=== PATIENT | female | born 1940 | race Caucasian/White ===

== ENCOUNTER 2017-01-25 11:42 | Inpatient (IN) | payer OTHER ==
[~2017-01-25] VITALS: Ht 165.1 cm; Wt 73.5 kg
[2017-01-25 12:02] VITALS: BP 191/94
--- NOTE | 2017-01-25 13:31 | NUR ---
PATIENT PRESENTS TO ED WITH C/O N/V/D X 1 MONTH---LOWER ABDOMINAL PAIN BURNING SENSATION, ASSOCIATES PAIN AND N/V/D AFTER ANY PO INTAKE--- ARRIVED FROM [place] 2 MONTHS AGO--HERE VISITING SEEN IN OUR 01/14/2017- 01/21/2017 HX---HTN, OSTEOPOROSIS, FIBROMYALGIA, RX---METOPROLOL, LOSARTAN, TREGRETOL, TRAMADOL, CLONAZEPAM . DENIES N/V/D; SKIN IS PINK/WARM/DRY; AAOX4 WITH EVEN AND STEADY GAIT; LUNGS CLEAR BL; HR EVEN AND REGULAR; PT DENIES ANY FEVER, CP, SOB, OR COUGH AT THIS TIME; PATIENT STATES PAIN OF 9/10 AT THIS TIME; VSS; PATIENT POSITIONED FOR COMFORT; HOB ELEVATED; BEDRAILS UP X2; BED DOWN. ER MD MADE AWARE OF PT STATUS.
[2017-01-25] MEDS ORDERED: PROTONIX40 MG PO (14:31)
[2017-01-25] MEDS ORDERED: TOPROL XL100 MG PO (14:31)
[2017-01-25] MEDS ORDERED: SUCRALFATE1 G1 PO (14:31)
[2017-01-25] MEDS ORDERED: LYRICA75 MG PO (14:31)
[2017-01-25] MEDS ORDERED: ISOSORBIDE DINI10 M1 PO (14:31)
[2017-01-25] MEDS ORDERED: LOSARTAN POTASS50 MG PO (14:31)
--- NOTE | 2017-01-25 14:32 | NUR ---
DR ROMERO EVALUATING AAO PT WITH DAUGHTER AT BEDSIDE
[2017-01-25] MEDS ORDERED: PIPERACILLIN/TAZOBACTAM 3.375 GM in DEXTROSE 5% 50 ML IV ONE (14:40)
[2017-01-25] MEDS ORDERED: PIPERACILLIN/TAZOBACTAM 3.375 GM VIAL IV ONE (14:49)
--- NOTE | 2017-01-25 15:02 | NUR ---
Patient will be admitted to care of DR MARTIN. Admited to MS. Will go to room 121B. Belongings list completed. Report to PINEDA OROURKE.
--- NOTE | 2017-01-25 15:55 | NUR ---
PATIENT ADMITTED TO THE UNIT FROM ER. PATIENT AWAKE,ALERT AND ORIENTED. PATIENT PRIMARILY SPEAKS MACANESE. PATIENT NO S/S OF DISTRESS NOTED. PATIENT ON ROOM AIR. PATIENT REPORTS OF 8/10 ABD PAIN. WILL NOTIFY THE MD FOR ORDERS. NO ACTIVE VOMITING OR DIARRHEA AT THIS MOMENT. BED LOWERED WITH CALL LIGHT WITHIN REACH. WILL CONTINUE TO MONITOR
[2017-01-25 16:19] VITALS: BP 171/90
[2017-01-25] MEDS ORDERED: cloNIDine 0.1 MG TAB PO PRN (16:55)
[2017-01-25] MEDS ORDERED: DEXT 5% / NACL 0.45% 1,000 ML IV SCH (16:55)
--- NOTE | 2017-01-25 19:30 | NUR ---
RECEIVED REPORT FROM AM NURSE. PT FAMILY AT BEDSIDE. PT RESTING IN BED, AOX4, ABLE TO VERBALIZE NEEDS. PT DENIES CHEST PAIN, SOB OR S/S OF ACUTE DISTRESS. PT C/O SLIGHT ABD PAIN, DENIES PAIN MED AT THIS TIME. PT C/O SLIGHT NAUSEA, DENIES NAUSEA MEDICATION AT THIS TIME. IV ACCESS ASYMPTOMATIC, PATENT AND INTACT. IVF INFUSING WELL. DISCUSSED AND REVIEWED PLAN OF CARE WITH PT. PT VERBALIZED UNDERSTANDING. ALL NEEDS MET. SAFETY MEASURES ENSURED. CALL LIGHT WITHIN REACH. WILL CONTINUE TO MONITOR.
--- NOTE | 2017-01-25 19:31 | NUR ---
PATIENT REPORT GIVEN AT BEDSIDE. PATIENT ENDORSED IN STABLE CONDITION
[2017-01-25 20:00] VITALS: BP 120/67
[2017-01-25] MEDS ORDERED: HYDROmorphone 1 MG/ML AMP IVP PRN (20:15)
[2017-01-25] MEDS ORDERED: MORPHINE SULFATE 2 MG/ML SYR IVP PRN (20:50)
[2017-01-25] MEDS ORDERED: LORazepam 2 MG/ML VIAL IVP PRN (20:50)
[2017-01-25] MEDS: METOPROLOL SUCCINATE 50 MG TABER PO SCH (21:00)
[2017-01-25] MEDS: DEXT 5% /NACL 0.9% 1,000 ML IV SCH (21:55)
[2017-01-25] MEDS: ACETAMINOPHEN 325 MG TAB PO PRN (21:56)
[2017-01-25] MEDS: PREGABALIN 25 MG CAP PO SCH (21:56)
[2017-01-25] MEDS: LOSARTAN 50 MG TAB PO SCH (21:56)
[2017-01-25] MEDS: clonazePAM 0.5 MG TAB PO SCH (21:58)
--- NOTE | 2017-01-25 21:58 | NUR ---
HELD METOPROLOL DUE TO LOW HR. ADMINISTERED REMAINING DUE MEDS WITH EDUCATION. ADMINISTERED TYLENOL PO PRN FOR FEVER. COOLING MEASURES ENSURED, WILL CONTINUE TO MONITOR. ALL NEEDS MET. SAFETY MEASURES ENSURED. CALL LIGHT WITHIN REACH. WILL CONTINUE TO MONITOR.
[2017-01-26] VITALS: BP 100/64
--- NOTE | 2017-01-26 00:10 | NUR ---
TEMP 97.7 AT THIS TIME. NO S/S OF DISTRESS. PT DENIES PAIN MED OR NAUSEA MED AT THIS TIME, WILL CONTINUE TO MONITOR. ALL NEEDS MET. SAFETY MEASURES ENSURED. CALL LIGHT WITHIN REACH. WILL CONTINUE TO MONITOR.
--- NOTE | 2017-01-26 04:01 | NUR ---
PT SLEEPING COMFORTABLY, NO S/S OF ACUTE DISTRESS. ALL NEEDS MET. IVF INFUSING WELL. SAFETY MEASURES ENSURED. CALL LIGHT WITHIN REACH. WILL CONTINUE TO MONITOR.
[2017-01-26] MEDS: DEXT 5% /NACL 0.9% 1,000 ML IV SCH ×3 (06:50→22:03)
--- NOTE | 2017-01-26 07:15 | NUR ---
ENDORSED PLAN OF CARE TO AM NURSE. CONDITION STABLE.
--- NOTE | 2017-01-26 07:16 | NUR ---
RECEIVED REPORT FROM SALESPERSON USED CARS NURSE. PATIENT IS SLEEPING. NO ACUTE DISTRESS NOTED. IN STABLE CONDITION. RESPIRATIONS EVEN, UNLABORED. LEFT HAND IV INTACT, PATENT AND RUNNING. PLAN OF CARE REVIEWED. SAFETY MEASURES IN PLACE, CALL LIGHT WITHIN REACH, SIDE RAILS UP X2, SEIZURE PRECAUTIONS IN PLACE WITH BED RAIL PADDING, BED WHEELS LOCKED. WILL CONTINUE TO MONITOR.
[2017-01-26 08:00] VITALS: BP 107/59
[2017-01-26] MEDS: PREGABALIN 25 MG CAP PO SCH ×2 (08:50→20:26)
[2017-01-26] MEDS: ISOSORBIDE DINITRATE 10 MG TAB PO SCH (08:51)
[2017-01-26] MEDS: SUCRALFATE 1 GM TAB PO SCH (08:51)
[2017-01-26] MEDS: PANTOPRAZOLE 40 MG TABEC PO SCH (08:52)
[2017-01-26] MEDS: LOSARTAN 50 MG TAB PO SCH ×2 (09:00→20:47)
[2017-01-26] MEDS: METOPROLOL SUCCINATE 50 MG TABER PO SCH ×2 (09:00→20:29)
[2017-01-26] MEDS ORDERED: FAMOTIDINE 20 MG TAB PO SCH (09:00)
--- NOTE | 2017-01-26 09:15 | NUR ---
PATIENT SITTING IN BED COMFORTABLY. NO DISTRESS NOTED. RESPIRATIONS EVEN, UNLABORED. COMPLAINTS OF ABD PAIN THAT IS WITHIN TOLERABLE LIMITS AT THIS TIME. AAOX4, CONTINUES TO BE ON FULL-LIQUID DIET. NO COMPLAINTS OF NAUSEA AT THIS TIME. AMBULATORY, LEFT AC IV PATENT WITH NO COMPLICATIONS NOTED. ABDOMEN SOFT, NON-DISTENDED, LBM YESTERDAY. SAFETY MEASURES IN PLACE, SEIZURE PRECAUTIONS IN PLACE, BED RAILING PADDED, CALL LIGHT WITHIN REACH. WILL CONTINUE TO MONITOR.
--- NOTE | 2017-01-26 10:43 | NUR ---
PATIENT HAS BEEN SCREENED AND CATEGORIZED HIGH NUTRITION RISK. PATIENT WILL BE SEEN WITHIN 1-2 DAYS OF ADMISSION. 01/26/17 - 01/27/17 WILLEM HOLT MBA, RD
[2017-01-26] MEDS ORDERED: POTASSIUM CHLORIDE 10 MEQ TABER PO SCH (11:30)
[2017-01-26] MEDS: LEVOFLOXACIN 500 MG/D5W PREMIX 100 ML IV SCH ×2 (12:00→13:21)
[2017-01-26] MEDS: ONDANSETRON 4 MG/2 ML VIAL IVP PRN ×2 (13:34→20:29)
--- NOTE | 2017-01-26 13:42 | NUR ---
C/O GENERALIZED ABD PAIN AND NAUSEA, PT REPORTS DIARRHEA ONLY 1 THIS AM, ABD SOFT, NON DISTENDED, OLESYA SMALL AMT OF FULL LIQ DIET FOR LUNCH, MEDICATED WITH ZOFRANA ND MORPHINE GIVEN PERPRN ORDER, FAMILY AT BEDSIDE, WILL CONTINUE TO MONTIOR.
--- NOTE | 2017-01-26 15:45 | NUR ---
01/26/17 RD INITIAL ASSESSMENT COMPLETED. PLEASE REFER TO NUTRITION ASSESSMENT UNDER CARE ACTIVITY FOR ESTIMATED NUTRITIONAL NEEDS. RD RECOMMENDATIONS: 1- RECOMMEND CONTINUE FULL LIQUID DIET. 2- RECOMMEND ADVANCE DIET, TOLERATED AND WHEN MEDICALLY CLERAED, TO 2G NA DIET (PT HX HTN) 3- ENCOURAGE AND MONITOR PO INTAKES. 4- F/U 3-5 DAYS; MODERATE RISK. WILLEM HOLT MBA, RD
--- NOTE | 2017-01-26 15:47 | NUR ---
PATIENT SITTING IN BED WITH FAMILY MEMBERS AT BEDSIDE. NO DISTRESS NOTED. COMPLAINTS ON ABD PAIN THAT IS WITHIN TOLERABLE LIMITS, REFUSES PAIN MEDS AT THIS TIME. CONTINUES TO HAVE NAUSEA THAT HAS DECREASED AFTER GIVEN ZOFRAN. NO BM YET TODAY. IV ON LEFT AC PATENT AND INFUSING. SAFETY MEASURES IN PLACE, CALL LIGHT WITHIN REACH. WILL CONTINUE TO MONITOR.
[2017-01-26 16:00] VITALS: BP 117/74
--- NOTE | 2017-01-26 17:55 | NUR ---
PT UP TO BATHROOM AMBULATES WITH STEADY GAIT, NO BM/DIARRHEA AT THIS TIME, DENIES NAUSEA OR VOMITING NOW, OLESYA SMALL AMOUNT OF DINNER. WILL CONTINUE TO MONTIOR.
--- NOTE | 2017-01-26 18:15 | NUR ---
PATIENT LYING IN BED. NO DISTRESS NOTED. COMPLAINS OF A HEADACHE. TYLENOL GIVEN. SAFETY MEASURES IN PLACE, CALL LIGHT WITHIN REACH. WILL CONTINUE TO MONITOR.
[2017-01-26] MEDS: ACETAMINOPHEN 325 MG TAB PO PRN (18:22)
--- NOTE | 2017-01-26 19:30 | NUR ---
REPORT GIVEN TO ARCH SUPPORT TECHNICIAN NURSE, PT IN STABLE CONDITION.
--- NOTE | 2017-01-26 19:31 | NUR ---
RECEIVED PT FROM DAY NURSE, PT IN STABLE CONDITION. PT IS AAOX4, PT SKIN IS INTACT, PT IS ON RA, PADS IN PLACE FOR SEIZURE PRECAUTIONS, PT HAS IV TO L AC 20G INFUSING WELL, RESPIRATIONS ARE EVEN AND UNLABORED. BOWEL SOUNDS PRESENT, INITIAL ASSESSMENT COMPLETED. PLAN OF CARE DISCUSSED WITH PT. PT VERBALIZED UNDERSTANDING. ALL SAFETY PRECAUTIONS MET, CALL LIGHT WITHIN REACH, WILL CONTINUE TO MONITOR.
[2017-01-26] MEDS: clonazePAM 0.5 MG TAB PO SCH (20:26)
[2017-01-26] MEDS: FAMOTIDINE 20 MG TAB PO SCH (20:26)
[2017-01-27] VITALS: BP 101/65
--- NOTE | 2017-01-27 00:15 | NUR ---
PT RESTING COMFORTABLY IN BED, NO S/S OF DISTRESS NOTED. CALL LIGHT WITHIN REACH, ALL SAFETY PRECAUTIONS MET, WILL CONTINUE TO MONITOR.
[2017-01-27] MEDS: DEXT 5% /NACL 0.9% 1,000 ML IV SCH ×2 (06:40→22:50)
--- NOTE | 2017-01-27 07:24 | NUR ---
REPORT GIVEN TO DAY NURSE FOR CONTINUITY OF CARE, PT IN STABLE CONDITION, NO S/S OF DISTRESS NOTED.
--- NOTE | 2017-01-27 07:25 | NUR ---
REPORT RECEIVED FROM POLICE CADET NURSE, PT AWAKE ALERT, RESP EVEN UNLABORED ON ROOM AIR, SKIN WARM DRY COLOR WNL, PT DENIES N/V, BUT REPORTS LOW ABD PAIN 6/10, ABD SOFT, NON DISTENDED, WILL MEDICARE PER ORDER FOR PAIN, PLAN OF CARE DISCUSSED, PT VERBALIZED FULL UNDERSTANDING, CALL MOURA WITHIN REACH SIDE RAIL UPX2, BED LOCKED IN LOW POSITION, WILL CONTINUE TO MONITOR.
[2017-01-27 08:00] VITALS: BP 125/75
[2017-01-27] MEDS ORDERED: FAMOTIDINE 20 MG TAB PO SCH (09:00)
[2017-01-27] MEDS: METOPROLOL SUCCINATE 50 MG TABER PO SCH ×2 (09:00→20:19)
[2017-01-27] MEDS: PANTOPRAZOLE 40 MG TABEC PO SCH (09:01)
[2017-01-27] MEDS: HYDROcodone/APAP 5/325 MG 1 TAB TAB PO PRN (09:01)
[2017-01-27] MEDS: SUCRALFATE 1 GM TAB PO SCH (09:01)
[2017-01-27] MEDS: PREGABALIN 25 MG CAP PO SCH ×2 (09:01→20:20)
[2017-01-27] MEDS: FAMOTIDINE 20 MG TAB PO SCH ×2 (09:02→20:19)
[2017-01-27] MEDS: ISOSORBIDE DINITRATE 10 MG TAB PO SCH (09:05)
[2017-01-27] MEDS: LOSARTAN 50 MG TAB PO SCH ×2 (09:05→20:20)
--- NOTE | 2017-01-27 09:10 | NUR ---
PATIENT LYING IN BED. NO DISTRESS NOTED. RESPIRATIONS EVEN, UNLABORED, ROOM AIR. AAOX4, ABDOMEN SOFT, NON-DISTENDED. COMPLAINS OF ABD PAIN, WILL MEDICATE PER ORDERS. AMBULATORY, SKIN INTACT. IV PATENT AND INFUSING. MEDICATIONS DUE GIVEN. BRADYCARDIA, NO COMPLAINTS OF DIZZINESS OR LIGHTHEADEDNESS. SAFETY MEASURES IN PLACE, CALL LIGHT WITHIN REACH, SEIZURE PRECAUTIONS IN PLACE, BED RAILS PADDED. WILL CONTINUE TO MONITOR.
[2017-01-27] MEDS: LEVOFLOXACIN 500 MG/D5W PREMIX 100 ML IV SCH (11:41)
--- NOTE | 2017-01-27 11:47 | NUR ---
PATIENT LYING IN BED COMFORTABLY WITH FRIEND AT BEDSIDE. NO DISTRESS NOTED. RESPIRATIONS EVEN, UNLABORED. MEDICATIONS DUE GIVEN. NO COMPLAINTS OF PAIN, NOR ANY DISCOMFORT AT THIS TIME. SAFETY MEASURES IN PLACE, CALL LIGHT WITHIN REACH, SEIZURE PRECAUTIONS IN PLACE. WILL CONTINUE TO MONITOR.
--- NOTE | 2017-01-27 14:30 | NUR ---
PATIENT IS SLEEPING. NO DISTRESS NOTED. IV PATENT AND INFUSING. SAFETY MEASURES IN PLACE, CALL LIGHT WITHIN REACH, SEIZURE PRECAUTIONS IN PLACE, BED RAILS PADDED. WILL CONTINUE TO MONITOR.
[2017-01-27 16:00] VITALS: BP 117/62
--- NOTE | 2017-01-27 16:30 | NUR ---
PATIENT SITTING WITH FAMILY MEMBER AT BEDSIDE. NO DISTRESS NOTED. RESPIRATIONS EVEN, UNLABORED. ABD PAIN WITHIN TOLERABLE, REFUSED PAIN MEDICATION AT THIS TIME. DENIES ANY NAUSEA. ABDOMEN SOFT, NON-DISTENDED. SAFETY MEASURES IN PLACE, CALL LIGHT WITHIN REACH, SEIZURE PRECAUTIONS ON PLACE, BED RAILS PADDED. WILL CONTINUE TO MONITOR.
--- NOTE | 2017-01-27 17:45 | NUR ---
PT UP AMBULATING WELL TO BATHROOM WITH STEADY GAIT, PT REPORTS TAKING KEPPRA 500MG EVERY NIGHT IN ADDITION TO KLONOPIN FOR SEIZURES, DR MARTIN PAGED AND CALLED BACK, DR Chet MARTIN NOTIFIED OF PT TAKING KEPPRA DAILY, VERBAL ORDER RECEIVED.
--- NOTE | 2017-01-27 19:18 | NUR ---
REPORT GIVEN TO FIELD SALES REPRESENTATIVE NURSE, PT IN STABLE CONDITION.
--- NOTE | 2017-01-27 19:19 | NUR ---
RECEIVED REPORT FROM DAY NURSE, PT IS AAOX4, PT IS ON RA, NO S/S OF DISTRESS NOTED. RESPIRATIONS ARE EVEN AND UNLABORED. SKIN IS INTACT, BOWEL SOUNDS ARE PRESENT, IV TO L AC 20 G INFUSING WELL, PATENT AND INTACT. PT IS ON RA, INITIAL ASSESSMENT COMPLETED. PLAN OF CARE DISCUSSED WITH PT AT BEDSIDE, ALL SAFETY PRECAUTIONS MET, CALL LIGHT WITHIN REACH, WILL CONTINUE TO MONITOR.
[2017-01-27] MEDS: clonazePAM 0.5 MG TAB PO SCH (20:18)
[2017-01-27] MEDS: levETIRAcetam 500 MG TAB PO SCH (20:19)
--- NOTE | 2017-01-27 22:30 | NUR ---
PT RESTING COMFORTABLY IN BED, NO S/S OF DISTRESS NOTED. ALL SAFETY PRECAUTIONS MET.
[2017-01-28] VITALS: BP 148/76
--- NOTE | 2017-01-28 00:10 | NUR ---
PT RESTING COMFORTABLY IN BED, WILL CONTINUE TO MONITOR, CALL LIGHT WITHIN REACH
[2017-01-28] MEDS: DEXT 5% /NACL 0.9% 1,000 ML IV SCH ×2 (04:06→16:00)
--- NOTE | 2017-01-28 06:00 | NUR ---
PTS IV INFILTRATED, NEW IV STARTED BY ALISON CHARGE NURSE IN R HAND 24 G
--- NOTE | 2017-01-28 07:33 | NUR ---
GAVE REPORT TO DAY NURSE AT BEDSIDE FOR CONTINUITY OF CARE, PT IN STABLE CONDITION. NO S/S OF DISTRESS NOTED.
--- NOTE | 2017-01-28 07:34 | NUR ---
RECEIVED REPORT FROM HEALTH ASSOCIATE NURSE AT BEDSIDE FOR CONTINUITY OF CARE. PT IS AWAKE AND ORIENTED. INTRODUCED SELF AND UPDATED BOARD. PT IS AAOX4, AMBULATES INDEPENDENTLY. IV IS ON RIGHT HAND 24G WITH D5NS INFUSING AT 100ML/HR. SKIN IS WARM AND DRY. VS: WNL. PT DENIES ABDOMINAL PAIN. NO OTHER COMPLAINTS AT THIS TIME. WILL CONTINUE TO MONITOR.
[2017-01-28 08:00] VITALS: BP 134/74
[2017-01-28] MEDS: LOSARTAN 50 MG TAB PO SCH ×2 (08:37→20:57)
[2017-01-28] MEDS: ISOSORBIDE DINITRATE 10 MG TAB PO SCH (08:37)
[2017-01-28] MEDS: SUCRALFATE 1 GM TAB PO SCH (08:37)
[2017-01-28] MEDS: PANTOPRAZOLE 40 MG TABEC PO SCH (08:38)
[2017-01-28] MEDS: METOPROLOL SUCCINATE 50 MG TABER PO SCH ×2 (08:38→20:57)
[2017-01-28] MEDS: PREGABALIN 25 MG CAP PO SCH ×2 (08:38→20:53)
[2017-01-28] MEDS: FAMOTIDINE 20 MG TAB PO SCH ×2 (08:38→20:54)
--- NOTE | 2017-01-28 10:50 | NUR ---
PT WENT TO TAKE A SHOWER ASSISTED BY TESTING COORDINATOR. AMBULATED DOWN THE LINARES TO SHOWER ROOM WITH STEADY GAIT. NO WEAKNESS NOTED.
[2017-01-28] MEDS: LEVOFLOXACIN 500 MG/D5W PREMIX 100 ML IV SCH (11:34)
[2017-01-28] MEDS: HYDROcodone/APAP 5/325 MG 1 TAB TAB PO PRN (15:56)
--- NOTE | 2017-01-28 15:56 | NUR ---
PT STATED PAIN ON ABDOMEN 09/05. ADMINISTERED NORCO FOR PAIN. PT TOLERATED WELL. PT REQUESTING TO SPEAK TO AUTOMOTIVE PRODUCTION WORKER. CALLED CURLY CRUZ. AND DISCUSSED PT'S CONCERN. PT INSTRUCTED TO CALL HER OWN PRECISION LENS TECHNICIAN. PT VERBALIZED UNDERSTANDING.
[2017-01-28 16:00] VITALS: BP 142/75
--- NOTE | 2017-01-28 18:00 | NUR ---
CHECKED ON PT IN ROOM. VISITORS AT BEDSIDE. PT HAS NO COMPLAINTS AT THIS TIME. WILL CONTINUE TO MONITOR.
--- NOTE | 2017-01-28 19:20 | NUR ---
ENDORSED PT TO INTELLIGENCE ENGINEER NURSE AT BEDSIDE FOR CONTINUITY OF CARE. PT IN STABLE CONDITION. VISITORS AT BEDSIDE.
--- NOTE | 2017-01-28 19:30 | NUR ---
RECEIVED REPORT AT PT BEDSIDE FROM DAY SHIFT RN. PT IS AAOX4, ON ROOM AIR, FIL[place] SPEAKING, RESPIRATIONS EVEN AND UNLABORED. 24G IV TO RIGHT HAND INFUSING D5NS@100ML/HR, SKIN INTACT. BOWEL SOUNDS PRESENT. VITAL SIGNS WNL. PLAN OF CARE DISCUSSED WITH PT, PT VERBALIZED UNDERSTANDING. PT IN STABLE CONDITION, NO SIGNS OF DISTRESS NOTED. BED IN LOW POSITION, CALL LIGHT WITHIN REACH. WILL CONTINUE TO MONITOR.
[2017-01-28] MEDS: levETIRAcetam 500 MG TAB PO SCH (20:54)
[2017-01-28] MEDS: clonazePAM 0.5 MG TAB PO SCH (20:56)
--- NOTE | 2017-01-28 21:00 | NUR ---
DR MARTIN CAME TO SEE PT. SCHEDULED MEDICATIONS ADMINISTERED EXCEPT FOR BLOOD PRESSURE MEDICATIONS BECAUSE BP WAS 99/58 AND HEART RATE WAS 53 AT 21:00. PT TOLERATED WELL. PT IN STABLE CONDITION, NO SIGNS OF DISTRESS NOTED. BED IN LOW POSITION, CALL LIGHT WITHIN REACH. WILL CONTINUE TO MONITOR.
--- NOTE | 2017-01-28 23:15 | NUR ---
PER PT REQUEST, CALLED HER FRIEND HITESH TO TELL HER ABOUT POSSIBLE D/C TOMORROW. HITESH DIDN'T ANSWER, TOLD PATIENT WE COULD TRY AGAIN IN THE MORNING BECAUSE ITS POSSIBLE THAT SHE'S ASLEEP, PT AGREED. PT IN STABLE CONDITION, NO SIGNS OF DISTRESS NOTED. BED IN LOW POSITION, CALL LIGHT WITHIN REACH. WILL CONTINUE TO MONITOR.
[2017-01-29] VITALS: BP 133/80
--- NOTE | 2017-01-29 01:33 | NUR ---
PT IS SLEEPING. PT IN STABLE CONDITION, NO SIGNS OF DISTRESS NOTED. BED IN LOW POSITION, CALL LIGHT WITHIN REACH. WILL CONTINUE TO MONITOR.
--- NOTE | 2017-01-29 03:00 | NUR ---
PT IS STILL SLEEPING. NO SIGNS OF DISTRESS NOTED. PATIENT IN STABLE CONDITION. BED IN LOW POSITION, CALL LIGHT WITHIN REACH. WILL CONTINUE TO MONITOR.
--- NOTE | 2017-01-29 05:15 | NUR ---
PT STILL SLEEPING, PT IN STABLE CONDITION, NO SIGNS OF DISTRESS NOTED. BED IN LOW POSITION, CALL LIGHT WITHIN REACH. WILL CONTINUE TO MONITOR.
[2017-01-29] MEDS: DEXT 5% /NACL 0.9% 1,000 ML IV SCH ×2 (05:17→15:27)
--- NOTE | 2017-01-29 06:06 | NUR ---
PT WORRIES ABOUT NOT GOING HOME TODAY. PT STATES SHE HAS TO TURN IN DOCUMENTATION PROVING SHE IS IN THE HOSPITAL TO SOCIAL SECURITY IN ORDER TO KEEP HER BENEFITS. TOLD PT I WOULD GET HER THE DOCUMENTATION STATING HE WAS IN THE HOSPITAL SINCE 01/25. PT IN STABLE CONDITION, NO SIGNS OF DISTRESS NOTED. BED IN LOW POSITION, CALL LIGHT WITHIN REACH. WILL CONTINUE TO MONITOR.
--- NOTE | 2017-01-29 07:20 | NUR ---
ENDORSED PT TO DAY SHIFT RN. PT IS IN STABLE CONDITION.
--- NOTE | 2017-01-29 07:20 | NUR ---
RECEIVED REPORT FROM NIGHT NURSE, PT IS AAOX4 KINYARWANDA SPEAKING, ON ROOM AIR, IV TO RIGHT HAND 24G INFUSING WELL, SKIN INTACT, INITIAL ASSESSMENT COMPLETED, REVIEWED PLAN OF CARE WITH PT, PT VERBALIZED UNDERSTANDING, ALL SAFETY/SEIZURE PRECAUTIONS IN PLACE, CALL LIGHT WITHIN REACH, WILL CONTINUE TO MONITOR.
[2017-01-29 08:00] VITALS: BP 153/93
[2017-01-29] MEDS: METOPROLOL SUCCINATE 50 MG TABER PO SCH (09:00)
[2017-01-29] MEDS: PANTOPRAZOLE 40 MG TABEC PO SCH (09:12)
[2017-01-29] MEDS: ISOSORBIDE DINITRATE 10 MG TAB PO SCH (09:12)
[2017-01-29] MEDS: LOSARTAN 50 MG TAB PO SCH (09:12)
[2017-01-29] MEDS: FAMOTIDINE 20 MG TAB PO SCH (09:12)
[2017-01-29] MEDS: PREGABALIN 25 MG CAP PO SCH (09:13)
[2017-01-29] MEDS: SUCRALFATE 1 GM TAB PO SCH (09:13)
--- NOTE | 2017-01-29 09:16 | NUR ---
DUE MEDICATIONS GIVEN, PT TOLERATED WELL, PT CURRENTLY RESTING IN BED, ALL NEEDS MET. WILL CONTINUE TO MONITOR.
[2017-01-29] MEDS: LEVOFLOXACIN 500 MG/D5W PREMIX 100 ML IV SCH (12:15)
--- NOTE | 2017-01-29 12:16 | NUR ---
DUE MEDICATION GIVEN, PT CURRENTLY EATING LUNCH, NO S/S OF DISTRESS NOTED, ALL NEEDS MET, WILL CONTINUE TO MONITOR.
[2017-01-29] MEDS ORDERED: CLONAZEPAM0.5 M1 PO (12:57)
[2017-01-29] MEDS ORDERED: KEPPRA500 MG PO (12:57)
[2017-01-29] MEDS ORDERED: LEVAQUIN750 MG PO (12:57)
--- NOTE | 2017-01-29 14:15 | NUR ---
PT CURRENTLY SLEEPING, EASILY AWAKEN. NO S/S OF DISTRESS NOTED. CALL LIGHT WITHIN REACH. WILL CONTINUE TO MONITOR
[2017-01-29 16:00] VITALS: BP 131/78
--- NOTE | 2017-01-29 17:07 | NUR ---
PT SIGNED ALL DISCHARGE PAPER WORK, DISCHARGE EDUCATION GIVEN, PRESCRIPTION EDUCATION GIVEN, FOLLOW UP INFORMATION GIVEN, IV REMOVED TIP INTACT, ALL PERSONAL BELONGINGS WITH PT, FAMILY MEMBER IN TO COST COORDINATOR PT.
--- NOTE | 2017-01-29 17:13 | NUR ---
PT WAS WHEELED OUT TO FRONT LOBBY IN STABLE CONDITION
== END 2017-01-29 17:18 | disposition home or self-care (01) | DRG 392 ==
LOC: MED 11:42 → MTU 14:57
PROVIDERS: ADMIT Preventive Medicine Preventive Medicine/Occupational Environmental Medicine; ATTEND Preventive Medicine Preventive Medicine/Occupational Environmental Medicine
DX: K57.30 Diverticulosis of large intestine without perforation or abscess without bleeding (principal); K35.80 Unspecified acute appendicitis; R00.1 Bradycardia, unspecified; G40.909 Epilepsy, unspecified, not intractable, without status epilepticus; E83.51 Hypocalcemia; I10 Essential (primary) hypertension; Z88.1 Allergy status to other antibiotic agents; Z90.710 Acquired absence of both cervix and uterus; E87.6 Hypokalemia